=== PATIENT | male | born 1945 | race Caucasian/White ===

== ENCOUNTER → 2021-10-02 10:54 | Outpatient (BNVA) | payer MEDICARE, SELFPAY | PROVIDERS: PCP Internal Medicine; Visit Provider Psychiatry & Neurology Neurology | DX: G20 Parkinson's disease (principal); F09 Unspecified mental disorder due to known physiological condition; M54.9 Dorsalgia, unspecified | CPT/HCPCS: 99212 ==

== ENCOUNTER 2024-05-18 14:02 | Outpatient (AMB) | payer MEDICARE, SELFPAY ==
--- NOTE | 2024-05-18 14:14 | MHC.OFFVIS ---
Vital Signs 05/18/24 14:21 Height 6 ft Weight 191 lb 4 oz BMI 25.9 BP 134/60 Blood Pressure Location Rt brachial Position Sitting Pulse 60 Pulse Source Pulse Oximeter Pulse Oximetry (%) 99 Oxygen Delivery Method Room Air Intake Visit Reasons: Follow Up Intake Note: Patient was last seen 09/2021, presents for a follow up for Parkinson's disease. Patients states that she feels like he is going down hill. Patients daughter states that he gets a little more confused. Mental Health Social Worker Required: No Accompanied by: Spouse Allergies No Known Allergies Allergy (Verified 05/18/24 14:18) Medication List - Last Reconciled 05/18/24 by Lucille Campos PA-C apixaban (Eliquis) 5 mg PO BID Bacillus coagulans (Probiotic (B. coagulans)) cells PO DAILY carbidopa-levodopa 25-100 mg 1.5 tabs PO QID cholecalciferol (vitamin D3) 50 mcg PO DAILY memantine 7 mg PO DAILY polyethylene glycol 3350 (Miralax) 17 grams PO DAILY rosuvastatin 20 mg PO DAILY tamsulosin 0.4 mg PO DAILY vitamins A,C,L-qsrm-tqeajk 2,148 mcg-113 mg-45 mg-17.4mg (PreserVision AREDS) 1 tab PO BID HPI Comments Details: 76 y/o left handed male with Parkinsons disease comes for follow up after almost a year. He is on sinemet 25/100 2-tabs bid and he feels his disease has progressed. Sinemet schedule: 1 at 7am, 1 at noon, 1 at 6pm, and 1 at 9:30. His and daughter relay history: He has no freezing episodes, stiffness, or rigidity. His memory is worse, STM and word finding difficulty. LTM is also poor as he wanted to go home to [place], [place], and his took the car keys away from him. He will take the recycling bag, and trash out but gets confused easily as he can not stay on task, needs redirection, forgets his 's name, and the names of his family and friends. He is no longer driving as he ended up in [place] instead of going home to [place], and the [employer] [place]. He has trouble signing checks, his hands shake, he doesn't use the computer now as he forgets his passwords or why he is at the computer. He is independent in his ADLs, he has no trouble dressing and bathing. He does not drop things, he does have tremors in his both legs when walking and uses a walking stick/ cane. He feels his balance and gait is getting worse, he shuffles his feet with small steps like gliding across the floor. His diet is okay, BM every other day, takes Miralax daily, sometimes gets constipated. He denies swallowing or difficulties speaking, and or drooling. Mood is irritable, worse in the evening, speech is limited, and has a soft voice. He gets emotionally upset as he speaks. [facility] Medical History Cognitive disorder Prediabetes Hyperlipidemia Parkinson's disease Back pain Heart valve disease Surgical History Hx of arthroscopy Hx of colonoscopy H/O hemorrhoidectomy Family History Brother Heart attack Pulmonary embolism Social History Household Members: Spouse Alcohol intake: current Alcohol intake frequency: does not drink Patient Tobacco Use Status: Never used Tobacco Current occupational status: retired Review of Systems Const All systems reviewed & are unremarkable except as noted in HPI and below Physical Exam Vital Signs: Last Vital Signs Pulse 60 05/18/24 14:21 BP 134/60 05/18/24 14:21 Pulse Ox 99 05/18/24 14:21 Oxygen Delivery Method Room Air 05/18/24 14:21 BMI result Body Mass Index 25.9 Decreased blink, L. side > decreased than R. Blank facial expressions and hypophonia. Memory MMSE - Cognitive Decline. Difficulty getting out of a chair. Tremors bilateral hands, and feet. Stooped posture, no arm swing on R, decreased arm swing on L, cogwheel. Festination, behavior. Balance, gait small steps, R. shuffles feet, L. Heel toe taps decreased slower than R. Const General: cooperative, comfortable and no acute distress Nutritional Appearance: average body habitus Orientation/consciousness: oriented to place HEENT Face and sinus: Yes other (L side is flatter in appearance than R.) Eyes Pupils: Equal, round and reactive pupils present Direct Ophthalmoscopy: other (Decreased Blink) Neck Neck: Yes full ROM Resp Effort & Inspection: normal respiratory effort and able to speak in complete sentences Neuro General: oriented to place and moves all extremities Cranial nerves: Yes CN's II-XII intact bilaterally, Yes Equal, round and reactive pupils present, Yes Normal accommodation reflex present, Yes Bilaterally intact EOM present, Yes Nystagmus not present, Yes Normal facial strength present, Yes Midline tongue present, Yes Ability to bilaterally rotate head present and Yes Ability to bilaterally elevate shoulders present Cognition (Neuro): abnormal cognition Speech: Other speech findings present (Neuro) (word finding difficulty) Gait exam (Neuro): Other gait observations present (uses a cane or walking sticks X2) Motor exam (neuro): 5/5 motor strength present throughout, Normal motor muscle tone present throughout and Tremors during motor activity present (Bilateral hands L>R and Lower Extremities) Deep tendon reflexes (DTR's): Right triceps reflex intensity grade: 2+, Left triceps reflex intensity grade: 2+, Rt Biceps (C5, C6): 2+, Left biceps reflex intensity grade: 2+, Right brachioradialis reflex intensity grade: 2+, Left brachioradialis reflex intensity grade: 2+, Right patellar reflex intensity grade: 2+, Left patellar reflex intensity grade: 2+, Right ankle reflex intensity grade: 2+ and Left ankle reflex intensity grade: 2+ Coordination: [id number] test normal, rapid alternating movements of the distal upper extremity normal (Decreased Upper Mvment L>R slow) and rapid alternating movements of the distal lower extremity normal (L heel toe/ decreased ) Psych Mental Status: other (MMSE 21 / cognitive decline) Speech and movement: Slowed movement present (Neuro) and Other speech and movement exam findings present (Psych) (Hypophonia) Affect: Blunted affect present Attitude: cooperative Thought process: Circumstantial thought process present Insight: Fair insight present (Psych) Judgement: Fair judgement present (Psych) Orientation What is the (year) (season) (date) (day) (month)?: season, day and month Where are we (state) (county) (town or city) (hospital) (floor)?: state, county, town or city and floor Registration Name of 3 unrelated objects clearly and slowly, then ask patient to repeat all 3 of them. (1st repeat determines score. Make sure they can repeat all three): object 1, object 2 and object 3 Attention & Calculation (CHOOSE ONE) Ask pt to begin with 100 & count backward by 7. Stop after 5 repeats. If pt cannot ask them to spell the word WORLD backward.: 93 Spell WORLD backwards (DLROW): 2 letters Recall Ask patient to repeat the 3 items from question #3.: object 1 Language Show patient a wristwatch & ask what it is. Repeat for pencil.: watch and pencil Ask the patient to repeat the phrase 'No ifs, ands, or buts' after you.: correct Ask the patient to 'take a piece of paper with their right hand' 'fold paper in half' 'place paper on floor': take paper in right hand, fold paper in half and place paper on floor Print the sentence 'CLOSE YOUR EYES' on a piece. If patient actually closes eyes then score.: followed written direction Give patient a blank piece of paper & ask to write a sentence. Score if it contains a noun & verb.: sentence contains subject and verb Score Score: 22 Results Reviewed Results Reviewed: MRI 2020 - moderate to mared tissue loss slightly greater than is expected for his age. Labs Assessment & Plan Assessment & Plan (1) Cognitive disorder: Code(s): F09 - Unspecified mental disorder due to known physiological condition Category: Medical (2) Parkinson's disease: Code(s): G20 - Parkinson's disease Category: Medical Qualifiers: Dyskinesia presence: without dyskinesia Fluctuating manifestations: with fluctuating manifestations Qualified Code(s): G20.A2 - Parkinson's disease without dyskinesia, with fluctuations Plan Cognitive Decline: Memantine/ namenda- 7mg for 2 weeks and titrate to 14mg for 2 weeks, then increase to 21mg for 2 weeks, and continue on 28mg, once titrated to 28mg PO daily will continue on this maintenance dose. Cognitive Decline MRI with [facility] Parkinsons Disorder : Physical Therapy and Cognitive Speech Therapy. Sinemet CD/LD : 25/100mg PO daily 6 tablets daily may take 1.5 tablet at 7am, 1.5 tablet at lunch, 1.5 tablet at 6pm and 1.5tablet at 9pm, * not to be taken with any protein products, meats, eggs, may take with a cracker or cookies and a glass of juice or water. Miralax- as needed for constipation, may aslo drink prune juice daily and eat lots of fiber dense foods, along with increasing daily water intake. Labs; CBC/ CMP/ B12/ TSH/ Vit D F/U in 3 months Orders: Orders MR brain wo con w [facility] Today F09 - Unspecified mental disorder due to known physiological condition, G20.A1 - Parkinson's disease without dyskinesia, without mention of fluctuations PT Evaluation and Treatment Today G20 - Parkinson's disease Complete Blood Count no Diff Today F09 - Unspecified mental disorder due to known physiological condition, G20.A2 - Parkinson's disease without dyskinesia, with fluctuations Comprehensive Met. Panel Today F09 - Unspecified mental disorder due to known physiological condition, G20.A2 - Parkinson's disease without dyskinesia, with fluctuations Vitamin B12 and Folate Today F09 - Unspecified mental disorder due to known physiological condition, G20.A2 - Parkinson's disease without dyskinesia, with fluctuations Vitamin D 25-OH Total Today F09 - Unspecified mental disorder due to known physiological condition, G20.A2 - Parkinson's disease without dyskinesia, with fluctuations Methylmalonic Acid Today F09 - Unspecified mental disorder due to known physiological condition, G20.A2 - Parkinson's disease without dyskinesia, with fluctuations TSH reflex Free T4 Today F09 - Unspecified mental disorder due to known physiological condition, G20.A2 - Parkinson's disease without dyskinesia, with fluctuations Homocysteine Today F09 - Unspecified mental disorder due to known physiological condition, G20.A2 - Parkinson's disease without dyskinesia, with fluctuations Referrals Speech and Hearing Referral F09 - Unspecified mental disorder due to known physiological condition Medications: New polyethylene glycol 3350 (Miralax) take daily as needed for constipation 17 grams PO DAILY 30 ea 3RF constipation memantine Start this medication at 7mg PO daily for one week, then titrate up to the next dose of 14mg PO daily for one week, then titrate up to 21mg PO daily for one week, then titrate up to 28mg PO daily for ongoing maintenance dose of 28mg PO daily. 7 mg PO DAILY 7 ea 0RF Changed From carbidopa-levodopa 25-100 mg 1 tab PO QID 360 tabs 3RF To carbidopa-levodopa 25-100 mg 1.5 tabs PO QID 540 tabs 3RF Coding Level of Care Code New Pt Level 4 (04866) Complex EM visit Add On G2211 Diagnoses Cognitive disorder F09 Parkinson's disease without dyskinesia, with fluctuating manifestations G20.A2 Dyskinesia presence: without dyskinesia Fluctuating manifestations: with fluctuating manifestations
[2024-05-18 14:21] VITALS: BP 134/60; PULSE 60; O2SAT 99; BMI 25.9
--- OUTSIDE RECORDS SUMMARY | 2024-05-18 16:22 | XMS_ITS | Continuity of Care Document ---
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 It does not include entries that were removed or entered in error. Problem Status Onset Date Problem Type Date of Resolution Comments Source Aortic valve stenosis Active Condition Oct 24, 2015 Entered By: ESSENCE LINARES Comment: Mitral Valve ProlapseOct 24, 2015 Entered By: ESSENCE LINARES Comment: Wore Ambulatory Monitor 2014 to Check for A FIB: Had NoneOct 24, 2015 Entered By: ESSENCE LINARES Comment: Never any Valvular Surg as of September Entered By: ESSENCE LINARES Comment: Never [place]; Never Stents or CABGOct 24, 2015 Entered By: ESSENCE LINARES Comment: Does do Serial ECHO's via PCP due to Valve Disorders [place] Benign prostatic hyperplasia Active Condition Oct 24, 2015 Entered By: ESSENCE LINARES Comment: No Need for Meds as of OCTOBER 10 [place] Care by local physician Active Condition Oct 24, 2015 Entered By: ESSENCE LINARES Comment: Dr Powell @ [facility] hemorrhoidectomy Active Condition Oct 24, 2015 Entered By: ESSENCE LINARES Comment: Surg 2010 [place] History of arthroscopy of knee joint Active Condition Oct 24, 2015 Entered By: ESSENCE LINARES Comment: Arthroscopy, L Knee (MMT) [place] Sciatica Active Condition Oct 23 Entered By: ESSENCE LINARES Comment: 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 L LEJun 2015 Entered By: ESSENCE LINARES Comment: MRI;s Cerv Spine & L-Spine approx 2013; Degen Disc & Jt'sJun 2015 Entered By: ESSENCE LINARES Comment: Surg Discussed; Deferred [place] screening malignant neoplasm colon Active Condition Oct 24, 2015 Entered By: ESSENCE LINARES Comment: Last Colonoscopy 2014; Neg CRC; no Polyps [place] Tinnitus Active Condition Oct 23 Entered By: ESSENCE LINARES Comment: Tinnitus & Relative Hearing Loss Attributable to Duty on [employer] [place] Medications Combined list of outpatient medications from [...] EVERY DAY ORAL ACTIVE DWIGHT LINARES 2015 [facility] IELD FISH OIL 1000MG (500MG DHA/EPA) CAP,ORAL TAKE 2 CAPSULES BY MOUTH EVERY DAY ORAL ACTIVE DWIGHT LINARES 2015 [facility] IELD MULTIVITAMI NS CAP/TAB TAKE ONE TABLET BY MOUTH EVERY DAY ORAL ACTIVE DWIGHT LINARES 2015 [facility] IELD PRAVASTATIN NA 40MG TAB TAKE ONE TABLET BY MOUTH AT BEDTIME ORAL ACTIVE DWIGHT LINARES 2015 [facility] IELD Immunizations Combined list of available immunizations from the Department of Defense and Veterans Affairs facilities. Immunization Series Date Given Administered By Site Reaction Lot Number CVX Code Drug Humid System Operator Status Comments Source ZOSTER (HISTORICAL) 2013 121 complet ed [place] [facility] Social History Combined list of available smoking, tobacco, and other social history from Department of Defense and Veterans Affairs facilities. Social History Type Response Date Comment Mann kelley Tobacco smoking status NHIS QUIT TOBACCO USE > 7 YEARS AGO 10/24/2015 [place]
== END 2024-05-18 16:26 | disposition home or self-care (01) ==
PROVIDERS: PCP Internal Medicine; Visit Provider Physician Assistant Medical
DX: R41.89 Other symptoms and signs involving cognitive functions and awareness (principal); G20.A2 Parkinson's disease without dyskinesia, with fluctuations
CPT/HCPCS: 99204; G2211

== ENCOUNTER → 2024-05-18 14:02 | Outpatient (BNVA) | payer MEDICARE, SELFPAY | PROVIDERS: PCP Internal Medicine; Visit Provider Physician Assistant Medical | DX: G20.A2 Parkinson's disease without dyskinesia, with fluctuations (principal) | CPT/HCPCS: 99202 ==

== ENCOUNTER 2024-08-17 12:51 | Outpatient (AMB) | payer MEDICARE, SELFPAY ==
[2024-08-17 12:54] VITALS: BP 130/72; PULSE 69; O2SAT 99; BMI 26.8
--- NOTE | 2024-08-17 12:54 | MHC.OFFVIS ---
Vital Signs 08/17/24 12:54 Height 6 ft Weight 197 lb 6 oz BMI 26.8 BP 130/72 Blood Pressure Location Rt brachial Position Sitting Pulse 69 Pulse Source Pulse Oximeter Pulse Oximetry (%) 99 Oxygen Delivery Method Room Air Intake Visit Reasons: Follow Up 3mo Intake Note: Patient presents follow up Parkinson's. MRI in chart 06/24/24. Awaiting for Speech appt. PT order mailed to patient. Accompanied by: Spouse Allergies No Known Allergies Allergy (Verified 08/17/24 12:58) HPI Comments Details: 78 y/o left handed male with Parkinsons disease comes for a follow up visit. He is on CD/LD 25/100 Sinemet schedule: 1 at waking up, 1 - 2 hours after breakfast, at noon -1 , at 6pm -1, and at bedtime 9pm- 1. His Kerline and daughter Tiffany relay history: He had zero falls since his last appt. He has some freezing episodes, with stiffness, no rigidity. He c/o of l. shoulder pain today. His STM memory is poor with word finding difficulty, and now forgets to take pills, his adminsters all his pills and he needs constant redirection. He forgets underwear or t-shirts, has difficulty with putting clothes on, forgets his 's name, and needs constant cuing, reminders with redirection as he gets confused with his pills and when given directions to multi-task, he has to be handed one pill at a time. LTM is also poor as he wanted to go [place], and his took the car keys away from him. He is able to complete tasks with direction, takes the recycling bag and trash out, but gets confused easily as he can not stay on task, mows and guzman the lawns, cleans the bathroom with supervision and assistance. He is no longer driving as he ended up [place] instead of going home to [employer], and the fishing club. His hand writing and signatures are illegible, bank returned his checks recently. He gets on the computer with help for zoom sessions and always needs help with passwords as his hands shake. He has difficulty with buttons and zippers and uses Kiziks line for Parkinsons. He denies dropping things, spilling soup from a spoon. He is independent in his ADLs, has no trouble dressing and bathing, just has to take his time. He has tremors bilaterally in Lower and Upper extremities L>R side, he uses a cane and or a walking stick as needed for hiking. He feels his balance and gait is getting worse, he shuffles his feet with small steps like gliding across the floor. His diet is okay, BM every 2 days, he takes PEG daily and [facility]: laxative vs. stool softeners and loss of water. Reminded patient to take senna, and docusate, if hemorrhoid is causing pain upon BM he should also drink Senna tea, also recommended he can do a hydro-colontherapy as needed 1x every 3 months if that is helpful, along with magnesium 400mg daily. He denies dysphagia, or drooling, his speech is slow and he must chew his food slowly, eats slowly, and voice is softer. His mood tends to be irritable, due to not having as much autonomy in his life and social engagements with friends, he feels restricted. He sleeps well goes to sleep at 9pm and wakes up at 6am with one bathroom break. [facility] Medical History Cognitive disorder Prediabetes Hyperlipidemia Parkinson's disease Back pain Heart valve disease Surgical History Hx of arthroscopy Hx of colonoscopy H/O hemorrhoidectomy Family History Brother Heart attack Pulmonary embolism Social History Household Members: Spouse Alcohol intake: current Alcohol intake frequency: does not drink Patient Tobacco Use Status: Never used Tobacco Current occupational status: retired Physical Exam Vital Signs: Last Vital Signs Pulse 69 08/17/24 12:54 BP 130/72 08/17/24 12:54 Pulse Ox 99 08/17/24 12:54 Oxygen Delivery Method Room Air 08/17/24 12:54 BMI result Body Mass Index 26.8 Const General: cooperative, comfortable and no acute distress Nutritional Appearance: average body habitus Orientation/consciousness: oriented to place HEENT Face and sinus: Yes other (L side is flatter in appearance than R.) Eyes Pupils: Equal, round and reactive pupils present Direct Ophthalmoscopy: other (Decreased Blink) Neck Neck: Yes full ROM Resp Effort & Inspection: normal respiratory effort and able to speak in complete sentences Neuro Other: Decreased blink, L. side > decreased than R. Blank facial expressions and hypophonia and voice tremors. Memory MMSE 21/30- Cognitive Decline. Difficulty getting out of a chair, or rising out of a car. Tremors bilateral upper ext L>R, and feet. Stooped posture, no arm swing on R, decreased arm swing on L, cogwheel rigidity R. arm. Festination, behavior. Balance, gait small steps, R. shuffles feet, L. Heel toe taps decreased slower than R. General: oriented to place and moves all extremities Cranial nerves: Yes CN's II-XII intact bilaterally, Yes Equal, round and reactive pupils present, Yes Normal accommodation reflex present, Yes Bilaterally intact EOM present, Yes Nystagmus not present, Yes Normal facial strength present, Yes Midline tongue present, Yes Ability to bilaterally rotate head present and Yes Ability to bilaterally elevate shoulders present Cognition (Neuro): abnormal cognition Speech: Other speech findings present (Neuro) (word finding difficulty) Gait exam (Neuro): Other gait observations present (uses a cane or walking sticks X2) Motor exam (neuro): 5/5 motor strength present throughout, Normal motor muscle tone present throughout and Tremors during motor activity present (Bilateral hands L>R and Lower Extremities) Deep tendon reflexes (DTR's): Right triceps reflex intensity grade: 2+, Left triceps reflex intensity grade: 2+, Rt Biceps (C5, C6): 2+, Left biceps reflex intensity grade: 2+, Right brachioradialis reflex intensity grade: 2+, Left brachioradialis reflex intensity grade: 2+, Right patellar reflex intensity grade: 2+, Left patellar reflex intensity grade: 2+, Right ankle reflex intensity grade: 2+ and Left ankle reflex intensity grade: 2+ Coordination: [id number] test normal (difficulty following directions unable to touch nose and tip 2/3x), rapid alternating movements of the distal upper extremity normal (Decreased Upper Mvment L>R slow) and rapid alternating movements of the distal lower extremity normal (L heel toe/ decreased ) Psych Mental Status: other (MMSE 21 / cognitive decline) Speech and movement: Slowed movement present (Neuro) and Other speech and movement exam findings present (Psych) (Hypophonia) Affect: Blunted affect present Attitude: cooperative Thought process: Circumstantial thought process present Insight: Fair insight present (Psych) Judgement: Fair judgement present (Psych) Results Reviewed Results Reviewed: MRI 06/24/2024 1. no mass effect etc. 2. scatttered t2 flair hyperintense foci in the white matter nonspecific but most likely reflecting sm. vessel disease. 3. general atrophy somewht more pronounces in pareital lobes along sylvian fissure, post procedssing data regarding brain volume as shown. Assessment & Plan Assessment & Plan (1) Parkinson's disease: Code(s): G20 - Parkinson's disease Category: Medical Qualifiers: Dyskinesia presence: without dyskinesia Fluctuating manifestations: with fluctuating manifestations Qualified Code(s): G20.A2 - Parkinson's disease without dyskinesia, with fluctuations (2) Irritable mood: Code(s): R45.4 - Irritability and anger Category: Medical (3) Fatigue: Code(s): R53.83 - Other fatigue Category: Medical Qualifiers: Fatigue type: chronic, unspecified Qualified Code(s): R53.82 - Chronic fatigue, unspecified Plan Cognitive decline continue Memantine/ Namenda- 28mg PO daily as he is at maintenance dose now. SE of Namenda is hoarseness as discussed today, both daughter and Pat, agree he should continue with this therapy. Cognitive Decline we reviewed MRI today, he has small vessel ischemia with general atrophy. Parkinsons Disorder Continue low intensity Physical Therapy and Cognitive Speech Therapy with OT. Continue CD/ LD 25/100mg PO daily 6 tablets daily may take 1.5 tablet at 7am, 1.5 tablet at lunch, 1.5 tablet at 6pm and 1.5tablet at 9pm, * not to be taken with any protein products, meats, eggs, may take with a cracker or cookies and a glass of juice or water. Constipation may take Miralax, Dulcolax, stool softeners, Psyllium Husk, Senna tea, with hemorrhoids this may be a good regiment to rotate stool softeners as needed. Rememeber to drink lots of fluids, increase intake of fiber in your diet, apricots, prunes, pears, juice and 60% of water daily. Labs CBC/ CMP/ B12/ TSH/ Vit D Homocysteine, MMA Ferritin. F/U in [address] Fleming Orders: Orders Complete Blood Count no Diff Today F09 - Unspecified mental disorder due to known physiological condition, G20.A2 - Parkinson's disease without dyskinesia, with fluctuations, R45.4 - Irritability and anger, R53.83 - Other fatigue Comprehensive Met. Panel Today F09 - Unspecified mental disorder due to known physiological condition, G20.A2 - Parkinson's disease without dyskinesia, with fluctuations, R45.4 - Irritability and anger, R53.83 - Other fatigue Medications: New magnesium oxide take one tablet as needed daily at bedtime. 400 mg PO DAILY 90 tabs 0RF stiffness 90 days MDD 400mg F09 - Unspecified mental disorder due to known physiological condition, R45.4 - Irritability and anger, R53.83 - Other fatigue Patient Instructions: Sleep Hygiene provided: set a scheduled bedtime and wake time to help regulate the circadian rhythm and balance the release of pituitary hormones. Sleep in a dark room, temperatures below 68 degrees, and no devices n bed. Limit caffeinated products 6 hours prior to bed, and limit fluids 2-4 hours prior to bed. Gentle night yoga, diffusing essential oils, and playing soft music can be relaxing. Resources PT at the local [facility] Parkinsons [facility] Zane Og Cognitive Decline [address] 3 fatty acids and social activities to increase engaging in daily tasks. Increase doing puzzles going out with jeri, your buddies, date night with your . 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 [email or web address] Coding Level of Care Code Est Pt Level 4 (66272) Complex EM visit Add On G2211 Diagnoses Parkinson's disease without dyskinesia, with fluctuating manifestations G20.A2 Dyskinesia presence: without dyskinesia Fluctuating manifestations: with fluctuating manifestations Irritable mood R45.4 Chronic fatigue R53.82 Fatigue type: chronic, unspecified Time Spent (min) 45
--- OUTSIDE RECORDS SUMMARY | 2024-08-17 15:08 | XMS_ITS | Continuity of Care Document ---
Author Name [employer] Organization [facility] Care Team Providers Care Underwriting Support Specialist Name Role Phone [facility] Unavailable Unavailable Problems Combined list of problems [...] September Entered By: ESSENCE LINARES Comment: Never NV; Never Stents or CABGOct 24, 2015 Entered By: ESSENCE LINARES Comment: Does do Serial ECHO's via PCP due to Valve Disorders [place] Benign prostatic hyperplasia Active Condition Oct 24, 2015 Entered By: ESSENCE LINARES Comment: No Need for Meds as of OCTOBER 10 [place] Care by local physician Active Condition Oct 24, 2015 Entered By: ESSENCE LINARES Comment: Dr Powell @ [facility] hemorrhoidectomy Active Condition Oct 24, 2015 Entered By: ESSENCE LINARES Comment: Surg 2010 [place] History of arthroscopy of knee joint Active Condition Oct 24, 2015 Entered By: ESSENCE LINARES Comment: Arthroscopy, L Knee (MMT) [place] Sciatica Active Condition Oct 23 Entered By: ESSENCE LINARES Comment: 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 L LEJun 2015 Entered By: ESSENCE LINARES Comment: MRI;s Cerv Spine & L-Spine approx 2013; Degen Disc & Jt'sJun 2015 Entered By: ESSENCE LINARES Comment: Surg Discussed; Deferred [place] screening malignant neoplasm colon Active Condition Oct 24, 2015 Entered By: ESSENCE LINARES Comment: Last Colonoscopy 2014; Neg CRC; no Polyps [place] Tinnitus Active Condition Oct 23 Entered By: ESSENCE LINARES Comment: Tinnitus & Relative Hearing Loss Attributable to Duty on [employer] [place] Medications Combined list of outpatient medications from [...] EVERY DAY ORAL ACTIVE [place] 2015 [facility] IELD FISH OIL 1000MG (500MG DHA/EPA) CAP,ORAL TAKE 2 CAPSULES BY MOUTH EVERY DAY ORAL ACTIVE [place] 2015 [facility] IELD MULTIVITAMI NS CAP/TAB TAKE ONE TABLET BY MOUTH EVERY DAY ORAL ACTIVE [place] LINARES 2015 [facility] IELD PRAVASTATIN NA 40MG TAB TAKE ONE TABLET BY MOUTH AT BEDTIME ORAL ACTIVE [place] 2015 [facility] IELD Immunizations Combined list of available immunizations from the Department of Defense and Veterans Affairs facilities. Immunization Series Date Given Administered By Site Reaction Lot Number CVX Code Drug Aoc Director Combat Operations Officer Status Comments Source ZOSTER (HISTORICAL) 2013 121 [place] ed [place] [facility] Social History Combined list of available smoking, tobacco, and other social history from Department of Defense and Veterans Affairs facilities. Social History Type Response Date Comment Mann kelley Tobacco smoking status NHIS QUIT TOBACCO USE > 7 YEARS AGO 10/24/2015 [place]
== END 2024-08-17 14:02 | disposition home or self-care (01) ==
LOC: HO.HSMS 12:51
PROVIDERS: PCP Internal Medicine; Visit Provider Physician Assistant Medical
DX: G20.A2 Parkinson's disease without dyskinesia, with fluctuations (principal); R45.4 Irritability and anger; R53.82 Chronic fatigue, unspecified
CPT/HCPCS: 99214; G2211

== ENCOUNTER → 2024-08-17 12:51 | Outpatient (BNVA) | payer MEDICARE, SELFPAY | PROVIDERS: PCP Internal Medicine; Visit Provider Physician Assistant Medical | DX: G20.A2 Parkinson's disease without dyskinesia, with fluctuations (principal); R45.4 Irritability and anger; R53.83 Other fatigue | CPT/HCPCS: 99212 ==

== ENCOUNTER 2024-12-14 15:23 | Outpatient (AMB) | payer MEDICARE, SELFPAY ==
--- OUTSIDE RECORDS SUMMARY | 2015-10-24 08:01 | XMS_ITS | Continuity of Care Document ---
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 It does not include entries that were removed or entered in error. Problem Status Onset Date Problem Type Date of Resolution Comments Source Aortic valve stenosis Active Condition Oct 24, 2015 Entered By: ESSENCE LINARES Comment: Mitral Valve ProlapseOct 24, 2015 Entered By: ESSENCE LIANRES Comment: Wore Ambulatory Monitor 2014 to Check for A FIB: Had NoneOct 24, 2015 Entered By: ESSENCE LINARES Comment: Never any Valvular Surg as of September Entered By: ESSENCE LINARES Comment: Never [place]; Never Stents or CABGOct 24, 2015 Entered By: ESSENCE LINARES Comment: Does do Serial ECHO's via PCP due to Valve Disorders [place] Benign prostatic hyperplasia Active Condition Oct 24, 2015 Entered By: ESSENCE LINARES Comment: No Need for Meds as of OCTOBER 10 [place] Care by local physician Active Condition Oct 24, 2015 Entered By: ESSENCE LINARES Comment: Dr Powell @ [facility] hemorrhoidectomy Active Condition Oct 24, 2015 Entered By: ESSENCE LINARES Comment: Surg 2010 [place] History of arthroscopy of knee joint Active Condition Oct 24, 2015 Entered By: ESSENCE LINARES Comment: Arthroscopy, L Knee (MMT) [place] Sciatica Active Condition Oct 23 Entered By: ESSENCE LINARES Comment: 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 L LEJun 2015 Entered By: ESSENCE ILNARES Comment: MRI;s Cerv Spine & L-Spine approx 2013; Degen Disc & Jt'sJun 2015 Entered By: ESSENCE LINARES Comment: Surg Discussed; Deferred [place] screening malignant neoplasm colon Active Condition Oct 24, 2015 Entered By: ESSENCE LINARES Comment: Last Colonoscopy 2014; Neg CRC; no Polyps [place] Tinnitus Active Condition Oct 23 Entered By: ESSENCE LINARES Comment: Tinnitus & Relative Hearing Loss Attributable to Duty on [employer] [place] Medications Combined list of outpatient medications from Department of Defense and Veterans Affairs facilities.Medications provided include 1) outpatient medications from the last 15 months, and 2) patient-reported medications. Medication Details Route Status Patient Instructions Prescription Expires Prescription Number Last Dispense Date Ordering Provider Order Date Order Qty Source CHOLECALCIF FLOYD 50MCG (2,000UNIT) TAB TAKE ONE TABLET BY MOUTH EVERY DAY ORAL ACTIVE DWIGHT LINARES 2015 [facility] IELD FISH OIL 1000MG (500MG DHA/EPA) CAP,ORAL TAKE 2 CAPSULES BY MOUTH EVERY DAY ORAL ACTIVE DWIGHT LINARES 2015 [facility] IELD MULTIVITAMI NS CAP/TAB TAKE ONE TABLET BY MOUTH EVERY DAY ORAL ACTIVE DWIGHT LINARES 2015 [facility] IELD PRAVASTATIN NA 40MG TAB TAKE ONE TABLET BY MOUTH AT BEDTIME ORAL ACTIVE DWIGHT LINARES 2015 [facility] IELD Immunizations Combined list of available immunizations from the Department of Defense and Veterans Affairs facilities. Immunization Series Date Given Administered By Site Reaction Lot Number CVX Code Drug Rat Exterminator Status Comments Source ZOSTER (HISTORICAL) 2013 121 complet [place] [facility] Social History Combined list of available smoking, tobacco, and other social history from Department of Defense and Veterans Affairs facilities. Social History Type Response Date Comment Mann kelley Tobacco smoking status NHIS QUIT TOBACCO USE > 7 YEARS AGO 10/24/2015 [place]
--- NOTE | 2024-12-14 15:25 | MHC.OFFVIS ---
Vital Signs 12/14/24 15:26 Height 6 ft Weight 181 lb 6 oz BMI 24.6 BP 132/70 Blood Pressure Location Rt brachial Position Sitting Pulse 58 Pulse Source Pulse Oximeter Pulse Oximetry (%) 98 Oxygen Delivery Method Room Air Intake Visit Reasons: Follow Up 4mnth Intake Note: Follow up care last seen Andres Implementation Specialist Payroll Required: No Accompanied by: Spouse Allergies No Known Allergies Allergy (Verified 12/14/24 15:30) Medication List - Last Reconciled 12/14/24 by Vickie Fleming MD apixaban (Eliquis) 5 mg PO BID Bacillus coagulans (Probiotic (B. coagulans)) cells PO DAILY carbidopa-levodopa 25-100 mg 1.5 tabs PO QID cholecalciferol (vitamin D3) 50 mcg PO DAILY citalopram 10 mg PO DAILY magnesium oxide 400 mg PO DAILY 90 days MDD 400mg memantine 28 mg PO DAILY 3 months polyethylene glycol 3350 (Miralax) 17 grams PO DAILY rosuvastatin 20 mg PO DAILY tamsulosin 0.4 mg PO DAILY vitamins A,C,Y-objt-cfiyeu 2,148 mcg-113 mg-45 mg-17.4mg (PreserVision AREDS) 1 tab PO BID HPI Comments Details: 79 y/o left handed male with Parkinsons disease comes for a follow up visit. He is on CD/LD 25/100 1.5 tabs qid . Patient did not notice a drastic change as per his daughter his symptoms fluctuate. His Kerline and daughter Tiffany relay history: He had zero falls since his last appt. Mood - fluctuates . He gets irritable when his cognition is affected. He has occasional with computers and cell phones. No recent hallucinations sleep is good He needs help with his medications . He is independent in all the other ADLS. Exercise-none. He did BIG program at [facility] and is starting again History from last visit 07/2024 -He has some freezing episodes, with stiffness, no rigidity. He c/o of l. shoulder pain today. His STM memory is poor with word finding difficulty, and now forgets to take pills, his adminsters all his pills and he needs constant redirection. He forgets underwear or t-shirts, has difficulty with putting clothes on, forgets his 's name, and needs constant cuing, reminders with redirection as he gets confused with his pills and when given directions to multi-task, he has to be handed one pill at a time. LTM is also poor as he wanted to go [place], and his took the car keys away from him. He is able to complete tasks with direction, takes the recycling bag and trash out, but gets confused easily as he can not stay on task, mows and guzman the lawns, cleans the bathroom with supervision and assistance. He is no longer driving as he ended up [place] instead of going home to [employer], and the [employer]. His hand writing and signatures are illegible, bank returned his checks recently. He gets on the computer with help for zoom sessions and always needs help with passwords as his hands shake. He has difficulty with buttons and zippers and uses Kiziks line for Parkinsons. He denies dropping things, spilling soup from a spoon. He is independent in his ADLs, has no trouble dressing and bathing, just has to take his time. He has tremors bilaterally in Lower and Upper extremities L>R side, he uses a cane and or a walking stick as needed for hiking. He feels his balance and gait is getting worse, he shuffles his feet with small steps like gliding across the floor. His diet is okay, BM every 2 days, he takes PEG daily and we spoke at [facility] re: laxative vs. stool softeners and loss of water. Reminded patient to take senna, and docusate, if hemorrhoid is causing pain upon BM he should also drink Senna tea, also recommended he can do a hydro-colontherapy as needed 1x every 3 months if that is helpful, along with magnesium 400mg daily. He denies dysphagia, or drooling, his speech is slow and he must chew his food slowly, eats slowly, and voice is softer. His mood tends to be irritable, due to not having as much autonomy in his life and social engagements with friends, he feels restricted. He sleeps well goes to sleep at 9pm and wakes up at 6am with one bathroom break. [facility] Medical History Cognitive disorder Prediabetes Hyperlipidemia Parkinson's disease Back pain Heart valve disease Surgical History Hx of arthroscopy Hx of colonoscopy H/O hemorrhoidectomy Family History Brother Heart attack Pulmonary embolism Social History Household Members: Spouse Alcohol intake: current Alcohol intake frequency: does not drink Patient Tobacco Use Status: Never used Tobacco Current occupational status: retired Physical Exam Vital Signs: Last Vital Signs Pulse 58 12/14/24 15:26 BP 132/70 12/14/24 15:26 Pulse Ox 98 12/14/24 15:26 Oxygen Delivery Method Room Air 12/14/24 15:26 BMI result Body Mass Index 24.6 Const General: cooperative, comfortable and no acute distress Nutritional Appearance: average body habitus Orientation/consciousness: oriented to place HEENT Face and sinus: Yes other (L side is flatter in appearance than R.) Eyes Pupils: Equal, round and reactive pupils present Direct Ophthalmoscopy: other (Decreased Blink) Neck Neck: Yes full ROM Resp Effort & Inspection: normal respiratory effort and able to speak in complete sentences Neuro Other: Decreased blink, L. side > decreased than R. Blank facial expressions and hypophonia and voice tremors. Memory MMSE 21/30- Cognitive Decline. Difficulty getting out of a chair, or rising out of a car. No tremors today Stooped posture, no arm swing on R, decreased arm swing on L, cogwheel rigidity R. arm. Festination, behavior. Balance, gait small steps, R. shuffles feet, L. Heel toe taps decreased slower than R. General: oriented to place and moves all extremities Cranial nerves: Yes CN's II-XII intact bilaterally, Yes Equal, round and reactive pupils present, Yes Normal accommodation reflex present, Yes Bilaterally intact EOM present, Yes Nystagmus not present, Yes Normal facial strength present, Yes Midline tongue present, Yes Ability to bilaterally rotate head present and Yes Ability to bilaterally elevate shoulders present Cognition (Neuro): abnormal cognition Speech: Other speech findings present (Neuro) (word finding difficulty) Gait exam (Neuro): Other gait observations present (uses a cane or walking sticks X2) Motor exam (neuro): 5/5 motor strength present throughout, Normal motor muscle tone present throughout and Tremors during motor activity present (Bilateral hands L>R and Lower Extremities) Coordination: [id number] test normal (difficulty following directions unable to touch nose and tip 2/3x) Psych Mental Status: other (MMSE 21 / cognitive decline) Speech and movement: Slowed movement present (Neuro) and Other speech and movement exam findings present (Psych) (Hypophonia) Affect: Blunted affect present Attitude: cooperative Thought process: Circumstantial thought process present Insight: Fair insight present (Psych) Judgement: Fair judgement present (Psych) Orientation What is the (year) (season) (date) (day) (month)?: year and day Where are we (state) (county) (town or city) (hospital) (floor)?: state, county, town or city, hospital/clinic and floor Registration Name of 3 unrelated objects clearly and slowly, then ask patient to repeat all 3 of them. (1st repeat determines score. Make sure they can repeat all three): object 1, object 2 and object 3 Attention & Calculation (CHOOSE ONE) Spell WORLD backwards (DLROW): 3 letters Language Show patient a wristwatch & ask what it is. Repeat for pencil.: watch and pencil Ask the patient to repeat the phrase 'No ifs, ands, or buts' after you.: correct Ask the patient to 'take a piece of paper with their right hand' 'fold paper in half' 'place paper on floor': take paper in right hand, fold paper in half and place paper on floor Print the sentence 'CLOSE YOUR EYES' on a piece. If patient actually closes eyes then score.: followed written direction Give patient a blank piece of paper & ask to write a sentence. Score if it contains a noun & verb.: sentence contains subject and verb Score Score: 21 Assessment & Plan Assessment & Plan (1) Parkinson's disease: Code(s): G20 - Parkinson's disease Category: Medical Qualifiers: Dyskinesia presence: without dyskinesia Fluctuating manifestations: with fluctuating manifestations Qualified Code(s): G20.A2 - Parkinson's disease without dyskinesia, with fluctuations (2) Irritable mood: Code(s): R45.4 - Irritability and anger Category: Medical (3) Fatigue: Code(s): R53.83 - Other fatigue Category: Medical Qualifiers: Fatigue type: chronic, unspecified Qualified Code(s): R53.82 - Chronic fatigue, unspecified Plan I will trial him on citalopram 10mg qd Continue namenda Xr 28 mg qd Continue CD/ LD 25/100mg PO daily 6 tablets daily may take 1.5 tablet at 7am, 1.5 tablet at lunch, 1.5 tablet at 6pm and 1.5tablet at 9pm, * not to be taken with any protein products, meats, eggs, may take with a cracker or cookies and a glass of juice or water. Constipation may take Miralax, Dulcolax, stool softeners, Psyllium Husk, Senna tea, with hemorrhoids this may be a good regiment to rotate stool softeners as needed. Remember to drink lots of fluids, increase intake of fiber in your diet, apricots, prunes, pears, juice and 60% of water daily. Medications: New citalopram 10 mg PO DAILY 30 tabs 6RF Coding Level of Care Code Est Pt Level 4 (30484) Complex EM visit Add On G2211 Diagnoses Parkinson's disease without dyskinesia, with fluctuating manifestations G20.A2 Dyskinesia presence: without dyskinesia Fluctuating manifestations: with fluctuating manifestations Irritable mood R45.4 Chronic fatigue R53.82 Fatigue type: chronic, unspecified
[2024-12-14 15:26] VITALS: BP 132/70; PULSE 58; O2SAT 98; BMI 24.6
== END 2024-12-14 16:06 | disposition home or self-care (01) ==
LOC: HO.HSMS 15:24
PROVIDERS: Visit Provider Psychiatry & Neurology Neurology
DX: G20.A2 Parkinson's disease without dyskinesia, with fluctuations (principal); R45.4 Irritability and anger; R53.82 Chronic fatigue, unspecified
CPT/HCPCS: 99214; G2211

== ENCOUNTER → 2024-12-14 15:23 | Outpatient (BNVA) | payer MEDICARE, SELFPAY | PROVIDERS: Visit Provider Psychiatry & Neurology Neurology | DX: G20.A2 Parkinson's disease without dyskinesia, with fluctuations (principal); R45.4 Irritability and anger; Z79.899 Other long term (current) drug therapy; R53.82 Chronic fatigue, unspecified | CPT/HCPCS: 99212 ==

== ENCOUNTER 2025-03-29 15:06 | Outpatient (AMB) | payer MEDICARE, SELFPAY ==
--- NOTE | 2025-03-29 15:08 | A.OFFVIS_ITS ---
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 coagulans)) cells PO DAILY carbidopa-levodopa 25-100 mg 1.5 tabs PO QID cholecalciferol (vitamin D3) 50 mcg PO DAILY citalopram 20 mg PO DAILY magnesium oxide 400 mg PO DAILY 90 days MDD 400mg memantine 28 mg PO DAILY 3 months polyethylene glycol 3350 (Miralax) 17 grams PO DAILY rosuvastatin 20 mg PO DAILY tamsulosin 0.4 mg PO DAILY vitamins A,C,K-lfot-lobvzt 2,148 mcg-113 mg-45 mg-17.4mg (PreserVision AREDS) 1 tab PO BID HPI Comments Details: 79 y/o left handed male with Parkinsons disease comes for a follow up visit. He is on CD/LD 25/100 1.5 tabs qid . Patient did not notice a major change since 1 year ago but he is doing mentally better. as per his daughter his symptoms fluctuate. His Kerline and daughter Tiffany relay history: He had zero falls since his last appt. Mood - fluctuates . His mood is better He has occasional issues computers and cell phones. No recent hallucinations sleep is good He needs help with his medications . He is independent in all the other ADLS. His feels he is declining cognitively but his daughter feels he is doing good. Exercise-none. History from last visit 07/2024 -He has some freezing episodes, with stiffness, no rigidity. He c/o of l. shoulder pain today. His STM memory is poor with word finding difficulty, and now forgets to take pills, his adminsters all his pills and he needs constant redirection. He forgets underwear or t-shirts, has difficulty with putting clothes on, forgets his 's name, and needs constant cuing, reminders with redirection as he gets confused with his pills and when given directions to multi-task, he has to be handed one pill at a time. LTM is also poor as he wanted to go [place], and his took the car keys away from him. He is able to complete tasks with direction, takes the recycling bag and trash out, but gets confused easily as he can not stay on task, mows and guzman the lawns, cleans the bathroom with supervision and assistance. He is no longer driving as he ended up in [place] instead of going home to [employer], and the [employer]. His hand writing and signatures are illegible, bank returned his checks recently. He gets on the computer with help for zoom sessions and always needs help with passwords as his hands shake. He has difficulty with buttons and zippers and uses [employer] for Parkinsons. He denies dropping things, spilling soup from a spoon. He is independent in his ADLs, has no trouble dressing and bathing, just has to take his time. He has tremors bilaterally in Lower and Upper extremities L>R side, he uses a cane and or a walking stick as needed for hiking. He feels his balance and gait is getting worse, he shuffles his feet with small steps like gliding across the floor. His diet is okay, BM every 2 days, he takes PEG daily and we spoke at [facility] re: laxative vs. stool softeners and loss of water. Reminded patient to take senna, and docusate, if hemorrhoid is causing pain upon BM he should also drink Senna tea, also recommended he can do a hydro-colontherapy as needed 1x every 3 months if that is helpful, along with magnesium 400mg daily. He denies dysphagia, or drooling, his speech is slow and he must chew his food slowly, eats slowly, and voice is softer. His mood tends to be irritable, due to not having as much autonomy in his life and social engagements with friends, he feels restricted. He sleeps well goes to sleep at 9pm and wakes up at 6am with one bathroom break. [facility] Medical History Cognitive disorder Prediabetes Hyperlipidemia Parkinson's disease Back pain Heart valve disease Surgical History Hx of arthroscopy Hx of colonoscopy H/O hemorrhoidectomy Family History Brother Heart attack Pulmonary embolism Social History Household Members: Spouse Alcohol intake: current Alcohol intake frequency: does not drink Patient Tobacco Use Status: Never used Tobacco Current occupational status: retired Physical Exam Vital Signs: Last Vital Signs Pulse 69 03/29/25 15:09 BP 126/64 03/29/25 15:09 Pulse Ox 99 03/29/25 15:09 Oxygen Delivery Method Room Air 03/29/25 15:09 BMI result Body Mass Index 23.9 Const General: cooperative, comfortable and no acute distress Nutritional Appearance: average body habitus Orientation/consciousness: oriented to place HEENT Face and sinus: Yes other (L side is flatter in appearance than R.) Eyes Pupils: Equal, round and reactive pupils present Direct Ophthalmoscopy: other (Decreased Blink) Neck Neck: Yes full ROM Resp Effort & Inspection: normal respiratory effort and able to speak in complete sentences Neuro Other: Decreased blink, L. side > decreased than R. Blank facial expressions and hypophonia and voice tremors. Difficulty getting out of a chair, or rising out of a car. No tremors today Stooped posture, no arm swing on R, decreased arm swing on L, cogwheel rigidity R. arm. Festination, behavior. Balance, gait small steps, R. shuffles feet, L. Heel toe taps decreased slower than R. General: oriented to place and moves all extremities Cranial nerves: Yes CN's II-XII intact bilaterally, Yes Equal, round and reactive pupils present, Yes Normal accommodation reflex present, Yes Bilaterally intact EOM present, Yes Nystagmus not present, Yes Normal facial strength present, Yes Midline tongue present, Yes Ability to bilaterally rotate head present and Yes Ability to bilaterally elevate shoulders present Cognition (Neuro): abnormal cognition Speech: Other speech findings present (Neuro) (word finding difficulty) Coordination: [id number] test normal (difficulty following directions unable to touch nose and tip 2/3x) Psych Speech and movement: Slowed movement present (Neuro) and Other speech and movement exam findings present (Psych) (Hypophonia) Affect: Blunted affect present Attitude: cooperative Thought process: Circumstantial thought process present Insight: Fair insight present (Psych) Judgement: Fair judgement present (Psych) Assessment & Plan Assessment & Plan (1) Parkinson's disease: Code(s): G20 - Parkinson's disease Category: Medical Qualifiers: Dyskinesia presence: without dyskinesia Fluctuating manifestations: with fluctuating manifestations Qualified Code(s): G20.A2 - Parkinson's disease without dyskinesia, with fluctuations (2) Irritable mood: Code(s): R45.4 - Irritability and anger Category: Medical (3) Fatigue: Code(s): R53.83 - Other fatigue Category: Medical Qualifiers: Fatigue type: chronic, unspecified Qualified Code(s): R53.82 - Chronic fatigue, unspecified Plan Increase citalopram 20mg qd Continue namenda Xr 28 mg qd Continue CD/ LD 25/100mg PO daily 6 tablets daily may take 1.5 tablet at 7am, 1.5 tablet at lunch, 1.5 tablet at 6pm and 1.5tablet at 9pm, * not to be taken with any protein products, meats, eggs, may take with a cracker or cookies and a glass of juice or water. PT to improve gait Constipation may take Miralax, Dulcolax, stool softeners, Psyllium Husk, Senna tea, with hemorrhoids this may be a good regiment to rotate stool softeners as needed. Remember to drink lots of fluids, increase intake of fiber in your diet, apricots, prunes, pears, juice and 60% of water daily. Orders: Orders PT Evaluation and Treatment Today G20.A2 - Parkinson's disease without dyskinesia, with fluctuations Medications: Changed From citalopram 10 mg PO DAILY 30 tabs 6RF To citalopram 20 mg PO DAILY 90 tabs 6RF Refilled memantine take one 28mg po daily at bedtime. 28 mg PO DAILY 3 months 90 ea 6RF cognitive decline F09 - Unspecified mental disorder due to known physiological condition, G20.A2 - Parkinson's disease without dyskinesia, with fluctuations carbidopa-levodopa 25-100 mg 1.5 tabs PO QID 540 tabs 3RF memantine take one 28mg po daily at bedtime. 28 mg PO DAILY 90 ea 6RF cognitive decline 3 months F09 - Unspecified mental disorder due to known physiological condition, G20.A2 - Parkinson's disease without dyskinesia, with fluctuations Coding Level of Care Code Est Pt Level 4 (41394) Complex visit Add On G2211 Diagnoses Parkinson's disease without dyskinesia, with fluctuating manifestations G20.A2 Dyskinesia presence: without dyskinesia Fluctuating manifestations: with fluctuating manifestations Irritable mood R45.4 Chronic fatigue R53.82 Fatigue type: chronic, unspecified
[2025-03-29 15:09] VITALS: BP 126/64; PULSE 69; O2SAT 99; BMI 23.9
== END 2025-03-29 15:45 | disposition home or self-care (01) ==
LOC: HO.HSMS 15:07
PROVIDERS: Visit Provider Psychiatry & Neurology Neurology
DX: G20.A2 Parkinson's disease without dyskinesia, with fluctuations (principal); R45.4 Irritability and anger; R53.82 Chronic fatigue, unspecified
CPT/HCPCS: 99214; G2211

== ENCOUNTER → 2025-03-29 15:06 | Outpatient (BNVA) | payer MEDICARE, SELFPAY | PROVIDERS: Visit Provider Psychiatry & Neurology Neurology | DX: G20.A2 Parkinson's disease without dyskinesia, with fluctuations (principal); F02.83 Dementia in other diseases classified elsewhere, unspecified severity, with mood disturbance; R45.4 Irritability and anger; R53.82 Chronic fatigue, unspecified; Z79.01 Long term (current) use of anticoagulants; Z79.82 Long term (current) use of aspirin | CPT/HCPCS: 99212 ==